=== PATIENT | male | born 1970 | race Hispanic/Latino ===

== ENCOUNTER 2017-04-14 02:10 | Emergency (ER) | payer OTHER ==
[2017-04-14] MEDS ORDERED: LIDOCAINE HCL 1% 20 ML VIAL ONE (02:24)
[2017-04-14] MEDS ORDERED: ONDANSETRON HCL 4 MG/2 ML VIAL ONE (02:25)
[2017-04-14] MEDS ORDERED: DICYCLOMINE HCL 20 MG TAB ONE (02:25)
== END 2017-04-14 03:47 | disposition home or self-care (01) ==
LOC: EDH 02:10
DX: S61.012A Laceration without foreign body of left thumb without damage to nail, initial encounter (principal); I10 Essential (primary) hypertension; X58.XXXA Exposure to other specified factors, initial encounter; Y93.89 Activity, other specified; Y92.89 Other specified places as the place of occurrence of the external cause; Y99.8 Other external cause status
CPT/HCPCS: 12042; 99284; J2405

== ENCOUNTER 2021-08-25 23:57 | Emergency (ER) | payer OTHER ==
[~2021-08-25] VITALS: Ht 180.3 cm; Wt 127.0 kg
[2021-08-26 04:08] VITALS: BP 114/80
== END 2021-08-26 04:30 | disposition home or self-care (01) ==
LOC: EDH 23:57
DX: K42.9 Umbilical hernia without obstruction or gangrene (principal); I10 Essential (primary) hypertension